=== PATIENT | male | born 1965 | race Caucasian/White ===

== ENCOUNTER 2017-03-12 00:20 | Emergency (ER) | payer MEDICARE ==
[2017-03-12] MEDS ORDERED: ULTRAM 50 MG PO ONE (00:45)
--- NOTE | 2017-03-12 00:51 | ERPHSYRPT ---
- History of Present Illness Time Seen by Provider: 03/12/17 00:34 Source: patient Exam Limitations: no limitations Patient Subjective Stated Complaint: Pt sts left knee pain that started earlier. Has had pain in this knee in the past and it frequently "gives out" on him. Sts pain increased tonight while standing. Sts hurts to bear weight on knee now. Sts he feels it is swollen. Denies new or specific injury. Rates pain / Triage Nursing Assessment: Pt ambulatory, steady gait noted. Pt skin p/w/d, resps non-labored. Pt answers all questions appropraitely. Pt with lateral swelling proximal left knee. No crepitus noted. Physician History: ABOUT 2 HOURS AGO PT STARTED WITH SWELLING AND INCREASED PAIN IN THE LEFT KNEE; DENIES NUMBNESS OF THE LEFT FOOT; ADMITS TO PREVIOUS DISLOCATIONS OF THE LEFT KNEE. Allergies/Adverse Reactions: Penicillins Adverse Reaction (Verified 03/12/17 00:28) Home Medications: Amlodipine Besylate 10 mg [Norvasc 10 MG] 10 mg PO DAILY 08/30/15 [History] Lisinopril 20 mg [Zestril 20 MG] 20 mg PO DAILY 08/30/15 [History] Aripiprazole 10 mg [Abilify 10 MG] 10 mg PO DAILY 03/12/17 [History] Ranitidine HCl 300 mg PO DAILY 03/12/17 [History] Hx Tetanus, Diphtheria Vaccination/Date Given: Yes (UNKNOWN) Hx Influenza Vaccination/Date Given: No Hx Pneumococcal Vaccination/Date Given: No Immunizations Up to Date: Yes - Review of Systems Musculoskeletal: Joint Pain (LEFT KNEE PAIN & SWELLING) - Past Medical History Pertinent Past Medical History: Yes Cardiac History: Hypertension Psycho-Social History: Attention Deficit Disorder, Bipolar - Past Surgical History Past Surgical History: Yes Musculoskeletal: Orthopedic Surgery Other Surgical History: BUNIONS. SURGERY ON FEET - Social History Smoking Status: Current every day smoker How long have you smoked: 35 years Exposure to second hand smoke: No Drug Use: marijuana Patient Lives Alone: Yes - Nursing Vital Signs Nursing Vital Signs: Initial Vital Signs Temperature 98.0 F Temperature Source Oral Pulse Rate 100 Respiratory Rate 18 Blood Pressure [Right Arm] 164/99 Pain Intensity 10 - Physical Exam General Appearance: alert Hips Exam: left: normal range of motion Legs Exam: left leg: normal range of motion Knees Exam: left knee: normal range of motion, soft tissue tenderness (MILD LEFT KNEE SUPRAPATELLAR TENDERNESS AND EDEMA) Ankle Exam: left ankle: normal range of motion Foot Exam: left foot: normal range of motion Neuro/Tendon Exam: normal sensation, normal motor functions Mental Status Exam: alert, cooperative Skin Exam: warm, dry SpO2 Interpretation: normal SpO2: 96 Oxygen Delivery: Room Air - Course Nursing assessment & vital signs reviewed: Yes - Radiology Exams Left Knee X-ray Interpretation: Teleradiologist Report (NO ACUTE FINDINGS. EARLY DEGENERATIVE CHANGES.) Ordered Tests: Active Orders 24 hr Category Date Time Status Joes Bandage Application -COUNT INCLUDES THE [facility] STAT Care 03/12/17 00:46 Active Crutches STAT Care 03/12/17 00:46 Active KNEE (3 VIEWS) Stat Exams 03/12/17 00:45 Ordered Medication Summary Discontinued Medications Generic Name Dose Route Start Last Admin Trade Name Freq PRN Reason Stop Dose Admin Tramadol HCl 50 mg 03/12/17 00:45 03/12/17 00:53 Ultram 50 Mg PO 03/12/17 00:46 50 mg STAT ONE Administration Tramadol HCl Confirm 03/12/17 00:52 Ultram 50 Mg Administered 03/12/17 00:53 Dose 50 mg .ROUTE .STK-MED ONE - Departure Time of Disposition: 02:00 Departure Disposition: Home Clinical Impression: LEFT KNEE SPRAIN Condition: Fair Critical Care Time: No Instructions: Knee Sprain Additional Instructions: FOLLOW UP WITH PRIVATE DOCTOR TOMORROW. ELEVATE LEFT KNEE ABOVE HEART LEVEL. JOSE WRAP TO LEFT KNEE FOR 4 DAYS. NO WEIGHT BEARING ON LEFT FOOT FOR 4 DAYS. USE CRUTCHES FOR 2 WEEKS. Prescriptions: Naproxen [Naprosyn] 500 mg PO [id number] PRN #20 tablet PRN Reason: Pain
[2017-03-12] MEDS ORDERED: ULTRAM 50 MG ONE (00:52)
[2017-03-12] MEDS ORDERED: NORCO 5/325 MG PO ONE (02:00)
[2017-03-12] MEDS ORDERED: NORCO 5/325 MG ONE (02:05)
[2017-03-12 02:23] VITALS: BP 134/70; PULSE 79; O2SAT 100
--- NOTE | 2017-03-12 09:13 | XRAY ---
Indication: Pain and swelling. No known injury. Comparison: April 05, 2016. 4 views of the left knee unchanged again demonstrating minimal medial and patellofemoral compartment degenerative changes with posterior fabella. No new/acute bony, articular, or soft tissue abnormalities. Comment: Preliminary interpretation was made by [facility]. No discrepancy.
== END 2017-03-12 02:23 | disposition home or self-care (01) ==
LOC: ED 00:20
DX: S83.92XA Sprain of unspecified site of left knee, initial encounter (principal); I10 Essential (primary) hypertension; M25.562 Pain in left knee; M25.462 Effusion, left knee
CPT/HCPCS: 73562; 99283; 99285; A9270-GY

== ENCOUNTER 2017-06-29 22:28 | Emergency (ER) | payer MEDICARE ==
[2017-06-29 22:42] VITALS: BP 168/102
--- NOTE | 2017-06-29 22:46 | ERPHSYRPT ---
- History of Present Illness Time Seen by Provider: 06/29/17 22:43 Source: patient Exam Limitations: no limitations Patient Subjective Stated Complaint: Pt unknowingly had chemical on hands rubbed hands on face - "bear attack". Has capsaicin as an active ingredient. Triage Nursing Assessment: Pt alert, oriented, answers all questions appropriately. Pt immediately to eyewash station where face and eyes rinsed for approx 3 minutes. Redness to eyes noted. Physician History: Pt unknowingly had chemical on hands rubbed hands on face - "bear attack". Has capsaicin as an active ingredient. Timing/Duration: today Modifying Factors: Improves With: cold therapy Associated Symptoms: denies symptoms Allergies/Adverse Reactions: Penicillins Adverse Reaction (Verified 06/29/17 22:42) Home Medications: Amlodipine Besylate 10 mg [Norvasc 10 MG] 10 mg PO DAILY 08/30/15 [History] Lisinopril 20 mg [Zestril 20 MG] 20 mg PO DAILY 08/30/15 [History] Aripiprazole 10 mg [Abilify 10 MG] 10 mg PO DAILY 03/12/17 [History] Ranitidine HCl 300 mg PO DAILY 03/12/17 [History] Hx Tetanus, Diphtheria Vaccination/Date Given: Yes (UNKNOWN) Hx Influenza Vaccination/Date Given: No Hx Pneumococcal Vaccination/Date Given: No Immunizations Up to Date: Yes - Review of Systems Constitutional: No Fever, No Chills Eyes: No Symptoms, Tearing Ears, Nose, & Throat: No Symptoms Respiratory: No Cough, No Dyspnea Cardiac: No Chest Pain, No Edema, No Syncope Abdominal/Gastrointestinal: No Abdominal Pain, No Nausea, No Vomiting, No Diarrhea Genitourinary Symptoms: No Dysuria Musculoskeletal: No Back Pain, No Neck Pain Skin: No Rash Neurological: No Dizziness, No Focal Weakness, No Sensory Changes Psychological: No Symptoms Endocrine: No Symptoms All Other Systems: Reviewed and Negative - Past Medical History Pertinent Past Medical History: Yes Cardiac History: Hypertension Psycho-Social History: Attention Deficit Disorder, Bipolar - Past Surgical History Past Surgical History: Yes Musculoskeletal: Orthopedic Surgery Other Surgical History: BUNIONS. SURGERY ON FEET - Social History Smoking Status: Current every day smoker How long have you smoked: 30 years Exposure to second hand smoke: No Drug Use: marijuana Patient Lives Alone: No - Nursing Vital Signs Nursing Vital Signs: Initial Vital Signs Temperature 98.4 F 06/29/17 22:36 Pulse Rate 87 06/29/17 22:36 Respiratory Rate 16 06/29/17 22:36 Blood Pressure 168/102 06/29/17 22:36 O2 Sat by Pulse Oximetry 98 06/29/17 22:36 Pain Scale Pain Intensity 0 - Physical Exam General Appearance: no apparent distress, alert Eye Exam: PERRL/EOMI, eyes nml inspection Ears, Nose, Throat Exam: normal ENT inspection, TMs normal, pharynx normal, moist mucous membranes Neck Exam: normal inspection, non-tender, supple, full range of motion Respiratory Exam: normal breath sounds, lungs clear, No respiratory distress Cardiovascular Exam: regular rate/rhythm, normal heart sounds, normal peripheral pulses Gastrointestinal/Abdomen Exam: soft, normal bowel sounds, No tenderness, No mass Back Exam: No vertebral tenderness Extremity Exam: normal inspection, normal range of motion, pelvis stable Neurologic Exam: alert, oriented x 3, cooperative, normal mood/affect, nml cerebellar function, nml station & gait, sensation nml, No motor deficits Skin Exam: normal color, warm, dry, No rash Lymphatic Exam: No adenopathy SpO2: 98 - Course Nursing assessment & vital signs reviewed: Yes - Progress Progress: improved Counseled pt/family regarding: diagnosis, need for follow-up - Departure Time of Disposition: 22:44 Departure Disposition: Home Clinical Impression: Chemical sensitivity Condition: Stable Critical Care Time: No Referrals: LILA JUARES [Primary Care Provider] - Instructions: Chemical Eye Burn
[2017-06-29 23:05] VITALS: PULSE 86; O2SAT 97
== END 2017-06-29 23:04 | disposition home or self-care (01) ==
LOC: ED 22:28
DX: R20.2 Paresthesia of skin (principal); T49.4X5A Adverse effect of keratolytics, keratoplastics, and other hair treatment drugs and preparations, initial encounter
CPT/HCPCS: 99282; 99283